=== PATIENT | female | born 1970 | race African-American/Black ===

== ENCOUNTER 2019-02-04 19:14 | Emergency (ER) | payer MEDICAID, OTHER ==
[~2019-02-04] VITALS: Ht 170.2 cm; Wt 117.9 kg
[2019-02-04 19:36] VITALS: BP 144/52
[2019-02-04] MEDS ORDERED: KETOROLAC TROMETH 60MG/2ML VIAL IM ONE (21:30)
[2019-02-04] MEDS ORDERED: methylPREDNISolone SOD SUCC 125 MG/2 ML VL IM ONE (21:30)
== END 2019-02-04 22:25 | disposition home or self-care (01) ==
LOC: ER 19:14
DX: M62.830 Muscle spasm of back (principal); M54.42 Lumbago with sciatica, left side; G89.29 Other chronic pain
CPT/HCPCS: 93005; 96372; 99283; J1885; J2930